=== PATIENT | female | born 1960 | race Caucasian/White ===

== ENCOUNTER → 2017-05-31 | Outpatient (CLI) | payer BC ==
[~2017-05-31] MED LIST: ALLERGY RELIEF10 MG PO; ANGELIQ 0.5 MG/1 TAB PO; AVAPRO300 M1 PO; BIOTIN10000 MC1; DITROPAN-XL5 M1 PO; ESTRADIOL0.5 MG PO; HCTZ PO; LEVOTHYROXINE75 MCG PO; VESICARE PO; VITAMIN D 3 PO; VITAMIN D1000 UNI1 PO
== END | disposition home or self-care (01) ==
LOC: CRAD 10:00
DX: R13.10 Dysphagia, unspecified (principal); I87.8 Other specified disorders of veins; I10 Essential (primary) hypertension; E03.9 Hypothyroidism, unspecified
CPT/HCPCS: 74230; 92611; G8996-GN; G8997-GN; G8998-GN